=== PATIENT | female | born 1970 | race Caucasian/White ===

== ENCOUNTER 2023-08-30 11:17 | Outpatient (CLI) | payer OTHER, SELFPAY | END 2023-08-30 11:18 | disposition home or self-care (01) | PROVIDERS: PCP Physician Assistant; Visit Provider Nurse Practitioner Family | DX: I10 Essential (primary) hypertension (principal); R53.83 Other fatigue; Z13.29 Encounter for screening for other suspected endocrine disorder; Z13.220 Encounter for screening for lipoid disorders | CPT/HCPCS: 80053; 80061; 84443 ==

== ENCOUNTER 2023-10-08 16:17 | Outpatient (CLI) | payer OTHER, SELFPAY | END 2023-10-08 16:18 | disposition home or self-care (01) | LOC: NFLDREF 16:18 | PROVIDERS: PCP Nurse Practitioner Family; Visit Provider Family Medicine | DX: I10 Essential (primary) hypertension (principal) | CPT/HCPCS: 80048 ==

== ENCOUNTER 2023-10-24 09:00 | Outpatient (CLI) | payer OTHER, SELFPAY | END 2023-10-24 09:01 | disposition home or self-care (01) | LOC: NFLDREF 10-27 14:42 | PROVIDERS: PCP Family Medicine; Referring Provider Nurse Practitioner Family; Visit Provider Family Medicine | DX: I10 Essential (primary) hypertension (principal) | CPT/HCPCS: 80048 ==

== ENCOUNTER 2024-08-19 08:37 | Outpatient (CLI) | payer BC, SELFPAY | END 2024-08-19 08:38 | disposition home or self-care (01) | PROVIDERS: PCP Family Medicine; Visit Provider Physician Assistant Medical | DX: E78.5 Hyperlipidemia, unspecified (principal); R73.03 Prediabetes; F41.9 Anxiety disorder, unspecified | CPT/HCPCS: 80053; 80061; 84443 ==